=== PATIENT | male | born 1950 | race Caucasian/White ===

== ENCOUNTER 2016-09-29 08:32 | Day surgery (SDC) | payer MEDICARE ==
[2016-09-29] MEDS ORDERED: LACTATED RINGERS 1,000 ML IV ONE ×2 (09:22→14:05)
[2016-09-29] MEDS ORDERED: ceFAZolin 2 GM/50 ML 50 ML IV ONE (09:35)
[2016-09-29] MEDS ORDERED: fentaNYL 100 MCG/2 ML VIAL IVP ONE (11:45)
[2016-09-29] MEDS ORDERED: LIDOCAINE-MPF 2% 5 ML VIAL IM ONE (11:45)
[2016-09-29] MEDS ORDERED: PROPOFOL 200 MG/20 ML VIAL IVP ONE (11:45)
[2016-09-29] MEDS ORDERED: DEXAMETHASONE 4 MG/ML VIAL IVP ONE (11:45)
[2016-09-29] MEDS ORDERED: ONDANSETRON 4 MG/2 ML VIAL IVP ONE (11:45)
[2016-09-29] MEDS ORDERED: MIDAZOLAM 2 MG/2 ML VIAL IVP ONE (11:45)
[2016-09-29] MEDS ORDERED: ePHEDrine 50 MG/ML AMP IVP ONE (11:45)
[2016-09-29] MEDS ORDERED: BUPIVACAINE 0.5% PF 30 ML VIAL SUBQ ONE (12:15)
[2016-09-29] MEDS ORDERED: LIDOCAINE 1%-EPI 1:100000 20 ML MDV SUBQ ONE (12:15)
[2016-09-29] MEDS ORDERED: HYDROmorphone 1 MG/ML SYRINGE ONE (12:40)
== END 2016-09-29 08:33 | disposition home or self-care (01) ==
PROC: B518YZA Fluoroscopy of Superior Vena Cava using Other Contrast, Guidance (ICD-10-PCS; 2016-09-29)
PROC: 02HV33Z Insertion of Infusion Device into Superior Vena Cava, Percutaneous Approach (ICD-10-PCS; principal; 2016-09-29 09:45)
DX: C61 Malignant neoplasm of prostate (principal); C79.9 Secondary malignant neoplasm of unspecified site; Z92.3 Personal history of irradiation; E78.5 Hyperlipidemia, unspecified; I10 Essential (primary) hypertension; H54.0 Blindness, both eyes; Z96.659 Presence of unspecified artificial knee joint
CPT/HCPCS: 36569; 71010; 93005; C1788; J0690; J7120

== ENCOUNTER 2017-03-12 09:19 | Outpatient (CLI) | payer MEDICARE ==
[2017-03-12] MEDS ORDERED: IOPAMIDOL-300 100 ML VIAL IVP ONE (11:58)
[2017-03-12] MEDS ORDERED: IOPAMIDOL-300 50 ML VIAL PO ONE (11:59)
--- NOTE | 2017-03-13 12:07 | CT Report ---
EXAM: CT CHEST, ABDOMEN AND PELVIS EXAM DATE: 03/12/2017 11:58 AM. CLINICAL HISTORY: SECONDARY MALIGNANT NEOPLASM OF BONE. Prostate cancer COMPARISONS: CT of the chest, abdomen and pelvis from 06/09/2016. TECHNIQUE: Routine helical CT imaging was performed through the chest. IV contrast: 100 cc of Isovue- 300. Reconstructions: Coronal and sagittal. In accordance with CT protocol optimization, one or more of the following dose reduction techniques w ere utilized for this exam: automated exposure control, adjustment of mA and/or KV based on patient s ize, or use of iterative reconstructive technique. FINDINGS: Lungs/Pleura: There is redemonstration of pleural-based linear lung markings bilaterally (image 19 of series 3). The appearance is similar to the previous study. Mild linear changes are noted in the adarsh g bases that most likely represents atelectasis or scarring there is redemonstration of a 3 mm nodule in the right lower lobe of the lung (image 43 of series 3). The appearance is similar to the previou s study. There is no new mass, infiltrate, pleural effusion or pneumothorax seen. Mediastinum: Visible but nonenlarged mediastinal lymph nodes are seen. Solid organs: The liver is without evidence of an enhancing mass. The spleen, pancreas, and adrenal g lands are normal in appearance kidneys are without evidence of an enhancing mass. Peritoneal Cavity/Bowel: The appendix is normal in appearance. Diverticuli are seen involving the mal cending and sigmoid colon. There is no fat stranding or fluid collection to suggest the presence of d iverticulitis. Pelvic Organs: No mass or cyst is seen within the pelvis. There is no periaortic or pelvic lymphadeno ciro. Radiation seeds are noted within the prostate bed. Vasculature: There is atherosclerosis of the aorta and iliac arteries without evidence of an abdomina l aortic aneurysm. Atherosclerosis of the coronary arteries is also noted. Bones: Multiple sclerotic lesions are seen within the visualized bones. One of the largest lesions is located within a L4 vertebral body. It measures approximately 6.8 x 4.7 cm (image 57 of series 5). O n the previous study, it measured approximately 5.3 x 2.4 cm. Other: None. IMPRESSION: Multiple sclerotic lesions of the visualized bones, that most likely represent metastatic prostate cancer. Atherosclerosis of the aorta and its branches, including the coronary arteries. Diverticulosis of the descending and sigmoid colon without evidence of diverticulitis. Redemonstration of pleural-based linear lung markings with a similar appearance to the previous study . These most likely represent scarring or atelectasis. Benign-appearing 3 mm nodule in the right lower lobe of the lung without change when compared to the previous study. [facility] Referring Provider Line: [phone] SITE ID: [id number]
== END 2017-03-12 09:20 | disposition home or self-care (01) ==
LOC: DI 09:19
PROVIDERS: ATTEND Radiology Radiation Oncology
DX: C61 Malignant neoplasm of prostate (principal); C79.51 Secondary malignant neoplasm of bone; I70.0 Atherosclerosis of aorta; I25.10 Atherosclerotic heart disease of native coronary artery without angina pectoris; K57.30 Diverticulosis of large intestine without perforation or abscess without bleeding; R91.1 Solitary pulmonary nodule
CPT/HCPCS: 71260; 74177

== ENCOUNTER 2017-03-17 09:33 | Outpatient (CLI) | payer MEDICARE ==
--- NOTE | 2017-03-17 16:29 | Nuclear Medicine Report ---
EXAM: BONE SCAN EXAM DATE: 03/17/2017 01:35 PM. CLINICAL HISTORY: SECONDARY MALIGNANT NEOPLASM OF BONE. Prostate cancer. COMPARISON: Bone scan 06/10/2016. CT 03/12/2017. TECHNIQUE: Following the intravenous administration of 33.1 mCi of technetium 99m MDP and an appropri ate delay, a whole-body scan was performed in anterior and posterior projections. FINDINGS: Exam Quality: Normal overall osseous radiotracer uptake. Physiological tracer uptake in bilateral col lecting systems. Skull: Heterogeneous activity in the skull without a dominant focal abnormality. Thorax: There are scattered small foci of increased uptake in posterior bilateral ribs, similar patte rn to the prior exam. Pelvis: No focal lesions. Spine: Intensely increased uptake in L4, similar to prior. Additional smaller foci of mild uptake in the spine, similar to prior. Other: Degenerative increased uptake at the left base of thumb. Photopenia from bilateral knee prosth eses. IMPRESSION: Multifocal skeletal metastatic disease, similar appearance to the prior bone scan. [facility] Referring Provider Line: [phone] SITE ID: [id number]
== END 2017-03-17 09:34 | disposition home or self-care (01) ==
LOC: DI 09:33
PROVIDERS: ATTEND Radiology Radiation Oncology
DX: C61 Malignant neoplasm of prostate (principal); C79.51 Secondary malignant neoplasm of bone
CPT/HCPCS: 78306; A9503

== ENCOUNTER 2017-11-27 08:56 | Outpatient (CLI) | payer MEDICARE ==
--- NOTE | 2017-11-27 13:42 | Nuclear Medicine Report ---
EXAM: BONE SCAN EXAM DATE: 11/27/2017 12:33 PM. CLINICAL HISTORY: PROSTATE CANCER. COMPARISON: 03/17/2017. 03/12/2017. TECHNIQUE: Following the intravenous administration of 32.1 mCi of technetium 99m MDP and an appropri ate delay, a whole-body scan was performed in anterior and posterior projections. FINDINGS: Exam Quality: Normal overall osseous radiotracer uptake. Physiological tracer uptake in bilateral col lecting systems. Skull: There is diffuse calvarial activity similar to prior. Thorax: There is stable bilateral posterior rib lesions. Pelvis: No focal lesions. Spine: Significantly decreased intensity of uptake in L4. Other scattered spine lesions show similar decreased intensity compared to prior. Extremities: There are bilateral knee prostheses. Mildly increased uptake at the left base of thumb. IMPRESSION: 1. Stable bilateral rib lesions which appear to correspond with old fracture deformities although the prior CT shows a sclerotic lesion in the right posterior seventh rib adjacent to an old fracture def ormity which continues to show increased radiotracer uptake. 2. Near resolution of the previously described spine lesions. 3. No new suspicious findings. [facility] Referring Provider Line: [phone] SITE ID: [id number]
== END 2017-11-27 08:57 | disposition home or self-care (01) ==
LOC: DI 08:56
PROVIDERS: ATTEND Internal Medicine
DX: C61 Malignant neoplasm of prostate (principal); M89.9 Disorder of bone, unspecified
CPT/HCPCS: 78306

== ENCOUNTER 2018-02-13 09:30 | Emergency (ER) | payer MEDICARE ==
--- NOTE | 2018-02-13 10:27 | ED Physician Documentation ---
PD HPI MALE - Stated complaint Stated Complaint: ADVERSE REACTION TO CHEMO - Chief complaint Chief Complaint: Abd Pain - History obtained from History obtained from: Patient - History of Present Illness Timing - onset: Yesterday Timing - duration: Days (1) Timing - details: Gradual onset, Still present Associated symptoms: Unable to urinate, Hematuria PD HPI MALE CONTRIB FACTORS: Other (chemo for prostate ca) Similar symptoms before: Has not had sx before Recently seen: Clinic, Admitted - Additional information Additional information: 67-year-old male with a history of advanced prostate cancer that has metastasized to the bone and occupying a significant portion of his bone marrow has recently been admitted into the hospital at [facility] in [place] to start a round of chemotherapy about 5 days ago. He was released from the hospital 2 days ago and had platelets given yesterday. He has developed urinary incontinence and has had blood in his urine as well. He has a sensation of pressure in his lower abdomen and a mass palpable. The patient is blind and uses a service dog. Review of Systems Constitutional: reports: Fatigue. denies: Fever, Myalgias Eyes: denies: Decreased vision Ears: denies: Ear pain Nose: denies: Congestion Throat: denies: Sore throat Cardiac: denies: Chest pain / pressure, Palpitations Respiratory: denies: Dyspnea, Cough GI: reports: Abdominal Pain. denies: Nausea, Vomiting, Constipation, Diarrhea : reports: Incontinent, Hematuria Skin: denies: Rash Musculoskeletal: denies: Neck pain, Back pain, Extremity pain PD PAST MEDICAL HISTORY - Past Medical History Cardiovascular: Hypertension, High cholesterol Respiratory: None Endocrine/Autoimmune: None GI: GERD : Other HEENT: Chronic vision loss Psych: None Musculoskeletal: None Derm: None - Past Surgical History General: Colonoscopy Ortho: Knee replacement, Carpal Tunnel surgery - Present Medications Home Medications: Ambulatory Orders Medication Instructions Recorded Confirmed Tamsulosin [Flomax] 2 tab PO ONCE 06/19/14 02/03/18 Zolpidem Tartrate 10 mg PO DAILY 06/19/14 02/03/18 Loperamide [Imodium] 4 mg PO Q4H MDD 12 tabs 07/15/17 02/03/18 Ondansetron [Ondansetron Odt] 8 mg PO Q8HR PRN 08/04/17 02/03/18 Diphenoxylate/Atropine [Lomotil] 1 - 2 tab PO QID PRN MDD 8 tabs 09/09/17 Acetaminophen [Tylenol] 1 tab ORAL BID 12/02/17 02/03/18 - Allergies Allergies/Adverse Reactions: Allergies Allergy/AdvReac Type Severity Reaction Status Date / Time No Known Drug Allergies Allergy Verified 02/13/18 09:39 - Social History Does the pt smoke?: Yes Smoking Status: Current some day smoker PD ED PE NORMAL - Vitals Vital signs reviewed: Yes (tachy ) - General General: Alert and oriented X 3, No acute distress, Well developed/nourished, Other (The patient is accompanied by a service dog "santos" who is friendly and wags his tail a lot. ) - HEENT HEENT: Atraumatic, Other (both eyes continuously wonder with no eye contact made ) - Neck Neck: Supple, no meningeal sign, No bony TTP - Cardiac Cardiac: RRR, No murmur - Respiratory Respiratory: No respiratory distress, Clear bilaterally - Abdomen Abdomen: Soft, Other (There is a distended firm palpable bladder just below the umbilicus) - Derm Derm: Normal color, Warm and dry, No rash, Other (There are multiple bruises of various ages to multiple areas of the body. They are non-tender and do not seem to bother the patient .) - Extremities Extremities: No deformity, No edema - Neuro Neuro: Alert and oriented X 3, No motor deficit, No sensory deficit, Normal speech Eye Opening: Spontaneous Motor: Obeys Commands Verbal: Oriented GCS Score: 15 - Psych Psych: Normal mood, Normal affect Results - Vitals Vitals: Vital Signs - 24 hr 02/13/18 02/13/18 09:35 11:44 Temperature 37 C Heart Rate 120 H 103 H Respiratory 20 18 Rate Blood Pressure 127/65 126/53 L O2 Saturation 98 99 Oxygen O2 Source Room air - Labs Labs: Laboratory Tests 02/13/18 09:30 Urine Color DARK YELLOW Urine Clarity CLOUDY Urine pH 6.0 Ur Specific [place] <=1.005 Urine Protein TRACE Urine Glucose (UA) NEGATIVE Urine Ketones NEGATIVE Urine Occult Blood LARGE H Urine Nitrite NEGATIVE Urine Bilirubin NEGATIVE Urine Urobilinogen 0.2 (NORMAL) Ur Leukocyte Esterase NEGATIVE Urine RBC 6-10 H Urine WBC 0-3 Ur Squamous Epith Cells FEW Squamous Urine Bacteria Moderate H Ur Microscopic Review INDICATED Urine Culture Comments INDICATED Urine HCG, Qual Cancelled PD MEDICAL DECISION MAKING - ED course Complexity details: reviewed results, re-evaluated patient, considered differential, d/w patient ED course: 67-year-old male undergoing treatment for advanced prostate cancer has developed hematuria and acute urinary retention. His symptoms are relieved with use of a Maria catheter which drained over 2000 mL's of blood-tinged urine. Urinalysis did show bacteria present in the urine without white cells or significant blood. He has a prescription for Cipro which was given to him at his recent hospitalization. He will start this medication. - Sepsis Event Vital Signs: Vital Signs - 24 hr 02/13/18 02/13/18 09:35 11:44 Temperature 37 C Heart Rate 120 H 103 H Respiratory 20 18 Rate Blood Pressure 127/65 126/53 L O2 Saturation 98 99 Oxygen O2 Source Room air Departure - Departure Disposition: 01 Home, Self Care Clinical Impression: Acute urinary retention Urinary tract infection Qualifiers: Urinary tract infection type: acute cystitis Hematuria presence: with hematuria Qualified Code(s): N30.01 - Acute cystitis with hematuria Instructions: ED UTI Cystitis Male, ED Retention Urinary Male, ED Catheter Care Maria Follow-Up: Richi Lugo MD [Primary Care Provider] - Comments: Start taking the Cipro that was prescribed to you during your hospitalization and [place] [facility] [place].
[2018-02-13 10:31] LABS: BILIRUBIN,URINE NEGATIVE (NEGATIVE); CLARITY,URINE CLOUDY (CLEAR); GLUCOSE, URINE (UA) NEGATIVE (NEGATIVE); KETONES,URINE (UA) NEGATIVE (NEGATIVE); LEUKOCYTE ESTERASE, URINE NEGATIVE (NEGATIVE); NITRITE,URINE NEGATIVE (NEGATIVE); OCCULT BLOOD,URINE LARGE (NEGATIVE); PROTEIN,URINE TRACE mg/dL (NEGATIVE); UROBILINOGEN,URINE 0.2 (NORMAL) E.U./dL (NORMAL)
[2018-02-13] MEDS ORDERED: LIDOCAINE 2% URO-JET 5 ML SYRINGE UR STA (10:37)
[2018-02-13 10:42] LABS: BACTERIA,URINE Moderate /HPF (None Seen); SQUAMOUS EPITHELIAL CELL,UR FEW Squamous (<= Few)
[2018-02-13 11:45] VITALS: BP 126/53
== END 2018-02-13 12:27 | disposition home or self-care (01) ==
LOC: ED 09:30
DX: N30.01 Acute cystitis with hematuria (principal); R33.9 Retention of urine, unspecified; C61 Malignant neoplasm of prostate; C79.52 Secondary malignant neoplasm of bone marrow; C79.51 Secondary malignant neoplasm of bone; I10 Essential (primary) hypertension; H54.8 Legal blindness, as defined in USA; F17.200 Nicotine dependence, unspecified, uncomplicated
CPT/HCPCS: 51702; 81001; 81003; 81025; 87086; 99283

== ENCOUNTER 2018-02-15 09:50 | Emergency (ER) | payer MEDICARE ==
--- NOTE | 2018-02-15 10:35 | ED Physician Documentation ---
PD HPI ABD PAIN - Stated complaint Stated Complaint: BACK PX/BLOOD IN URINE/DIZZY - Chief complaint Chief Complaint: General - History obtained from History obtained from: Patient - History of Present Illness Timing - onset: How many days ago (10 days post chemo, so at [facility] of counts. Had dysuria then urinary retention and had diaz placed few days ago. Has had hematuria since.) Timing - duration: Days (he has had low cbc/platelet count since chemo and also due to tumor in marrow. Having loss of blood due to hematuria.) Timing - details: Abrupt onset, Still present Quality: Aching, Fullness/distended. No: Cramping Similar symptoms before: Work up / diagnostics Review of Systems Constitutional: denies: Fever, Chills Nose: denies: Rhinorrhea / runny nose, Congestion, Foreign Body PD PAST MEDICAL HISTORY - Past Medical History Cardiovascular: Hypertension, High cholesterol Respiratory: None Endocrine/Autoimmune: None GI: GERD : Other HEENT: Chronic vision loss Psych: None Musculoskeletal: None Derm: None - Past Surgical History General: Colonoscopy Ortho: Knee replacement, Carpal Tunnel surgery - Present Medications Home Medications: Ambulatory Orders Medication Instructions Recorded Confirmed Tamsulosin [Flomax] 2 tab PO ONCE 06/19/14 02/03/18 Zolpidem Tartrate 10 mg PO DAILY 06/19/14 02/03/18 Loperamide [Imodium] 4 mg PO Q4H MDD 12 tabs 07/15/17 02/03/18 Ondansetron [Ondansetron Odt] 8 mg PO Q8HR PRN 08/04/17 02/03/18 Diphenoxylate/Atropine [Lomotil] 1 - 2 tab PO QID PRN MDD 8 tabs 09/09/17 Acetaminophen [Tylenol] 1 tab ORAL BID 12/02/17 02/03/18 - Allergies Allergies/Adverse Reactions: Allergies Allergy/AdvReac Type Severity Reaction Status Date / Time No Known Drug Allergies Allergy Verified 02/13/18 09:39 - Social History Does the pt smoke?: Yes Smoking Status: Current some day smoker PD ED PE NORMAL - Vitals Vital signs reviewed: Yes - General General: Alert and oriented X 3, Well developed/nourished - HEENT HEENT: Atraumatic, EOMI, Moist mucous membranes, Pharynx benign - Neck Neck: Supple, no meningeal sign, Thyroid normal - Cardiac Cardiac: RRR, No murmur - Respiratory Respiratory: Clear bilaterally (except for some central hilar congestion. ) - Male Male : Other (diaz in place. Draining bloody urine with V-8 consistency. Small clots couple of times. Nursing irrigated the diaz several times and still with notable red heamoric) - Back Back: No CVA TTP, No spinal TTP - Derm Derm: Normal color, Warm and dry - Extremities Extremities: No tenderness to palpate, Normal ROM s pain, No edema, No calf tenderness / cord - Neuro Eye Opening: Spontaneous Motor: Obeys Commands Verbal: Oriented GCS Score: 15 - Psych Psych: Normal mood Results - Vitals Vitals: Vital Signs - 24 hr 02/15/18 02/15/18 02/15/18 10:05 13:35 13:37 Temperature 36.7 C 37.2 C Heart Rate 109 H 103 H 101 H Respiratory 16 16 Rate Blood Pressure 131/62 H 120/55 L 120/55 L O2 Saturation 100 98 99 02/15/18 02/15/18 02/15/18 13:41 13:46 14:02 Temperature 37.1 C 37.2 C 37.0 C Heart Rate 100 101 H 101 H Respiratory 15 16 16 Rate Blood Pressure 123/61 131/59 H 123/59 L O2 Saturation 98 98 99 02/15/18 02/15/18 02/15/18 14:17 14:34 14:53 Temperature 37.2 C 37.2 C 37.3 C Heart Rate 101 H 104 H 102 H Respiratory 15 16 16 Rate Blood Pressure 137/67 H 136/63 H 149/73 H O2 Saturation 99 100 98 02/15/18 02/15/18 02/15/18 14:58 16:00 17:00 Temperature 37.3 C Heart Rate 103 H 97 97 Respiratory 16 16 15 Rate Blood Pressure 146/70 H 122/58 L 130/73 O2 Saturation 97 98 02/15/18 02/15/18 02/15/18 18:45 18:55 19:11 Temperature 37.1 C 36.7 C 36.9 C Heart Rate 101 H 77 92 Respiratory 16 15 15 Rate Blood Pressure 131/61 H 136/77 H 144/65 H O2 Saturation 98 97 Oxygen O2 Source Room air - Labs Labs: Laboratory Tests 02/15/18 02/15/18 02/15/18 07:30 07:30 17:12 Hgb 5.6 L* Hct 16.2 L* Blood Type O POSITIVE Cancelled Antibody Screen NEGATIVE Cancelled Crossmatch IS Only See Detail See Detail PD MEDICAL DECISION MAKING - ED course Complexity details: reviewed results (given RBCs 1 unit and then had hemogram redraw showing similar low H/H, presume from the loss in diaz/bladder. Ordered 2nd unit RBC. Will continue infusion of it while patient trasfering for also to have Urology to help with bleeding cessation, and want to trasnfer to [facility]), re- evaluated patient (has poor marrow function due to tumor and also with chemo. Very low blood count. Also with unintended hematuria post diaz placement. ), considered differential, d/w patient, d/w specialty development consultant (talked with Dr. Rivera, economics lecturer for Hem/Onc - to transfuse and evaluate for Urology. Suggests/confirms trasnfer to [facility] if bed availalbe. ) - Sepsis Event Vital Signs: Vital Signs - 24 hr 02/15/18 02/15/18 02/15/18 10:05 13:35 13:37 Temperature 36.7 C 37.2 C Heart Rate 109 H 103 H 101 H Respiratory 16 16 Rate Blood Pressure 131/62 H 120/55 L 120/55 L O2 Saturation 100 98 99 02/15/18 02/15/18 02/15/18 13:41 13:46 14:02 Temperature 37.1 C 37.2 C 37.0 C Heart Rate 100 101 H 101 H Respiratory 15 16 16 Rate Blood Pressure 123/61 131/59 H 123/59 L O2 Saturation 98 98 99 02/15/18 02/15/18 02/15/18 14:17 14:34 14:53 Temperature 37.2 C 37.2 C 37.3 C Heart Rate 101 H 104 H 102 H Respiratory 15 16 16 Rate Blood Pressure 137/67 H 136/63 H 149/73 H O2 Saturation 99 100 98 02/15/18 02/15/18 02/15/18 14:58 16:00 17:00 Temperature 37.3 C Heart Rate 103 H 97 97 Respiratory 16 16 15 Rate Blood Pressure 146/70 H 122/58 L 130/73 O2 Saturation 97 98 02/15/18 02/15/1818 18:45 18:55 19:11 Temperature 37.1 C 36.7 C 36.9 C Heart Rate 101 H 77 92 Respiratory 16 15 15 Rate Blood Pressure 131/61 H 136/77 H 144/65 H O2 Saturation 98 97 Oxygen O2 Source Room air Departure - Departure Disposition: 02 Transfer Acute Care Hosp Clinical Impression: Pancytopenia, Status post chemotherapy, Severe anemia, Thrombocytopenia, Gross hematuria Condition: Stable Record reviewed to determine appropriate education?: Yes Discharge Date/Time: 02/15/18 19:10
[2018-02-15] MEDS ORDERED: TRANEXAMIC ACID 1,000 MG in SODIUM CHLORIDE 0.9% 100ML 100 ML IV STA (11:22)
[2018-02-15] MEDS ORDERED: SODIUM CHLORIDE 0.9% 500 ML IV ONE (11:23)
[2018-02-15] MEDS ORDERED: MORPHINE 10 MG/ML VIAL IVP STA (12:51)
[2018-02-15 17:18] LABS: HGB - HEMOGLOBIN 5.6 g/dL (14.0-18.0)
[2018-02-15 19:12] VITALS: BP 144/65
== END 2018-02-15 19:10 | disposition short-term general hospital (02) ==
LOC: ED 09:50
DX: D61.818 Other pancytopenia (principal); D64.9 Anemia, unspecified; D69.6 Thrombocytopenia, unspecified; R31.0 Gross hematuria; I10 Essential (primary) hypertension; F17.200 Nicotine dependence, unspecified, uncomplicated; Z92.21 Personal history of antineoplastic chemotherapy; Z96.659 Presence of unspecified artificial knee joint
CPT/HCPCS: 85014; 85018; 86850; 86900; 86901; 86920; 99285